=== PATIENT | female | born 1960 | race Caucasian/White ===

== ENCOUNTER → 2016-10-22 | Outpatient (CLI) | payer MEDICARE, OTHER ==
[~2016-10-22] MED LIST: BACTRIM 400 MG-1 TAB; CEFTIN500 MG PO; LEXAPRO20 MG PO; LORTAB 7.5/5001 TAB PO; NORCO 325 MG-51 TAB PO; PERCOCET 325 MG1 TA2 PO; PRILOSEC 20MG20 MG PO; PROTONIX20 MG PO; TYLENOL EXTRA500 M1 PO; ZOFRAN 4MG T4 MG/TAB PO; ZOLOFT 25MG25 MG
== END ==
LOC: COL.RAD 10:45
DX: N13.39 Other hydronephrosis (principal)
CPT/HCPCS: Q9967

== ENCOUNTER → 2016-10-27 | Outpatient (CLI) | payer MEDICARE, OTHER | LOC: MC.RAD 11:06 | DX: Z12.31 Encounter for screening mammogram for malignant neoplasm of breast (principal) ==